=== PATIENT | male | born 1960 | race Caucasian/White ===

== ENCOUNTER 2020-07-23 02:05 | Outpatient (CLI) | payer BC, SELFPAY ==
[2020-07-23 18:46] LABS: SARS-CoV-2 RNA PCR Negative
== END 2020-07-23 02:06 | disposition home or self-care (01) ==
LOC: ANHCOVIDDT 02:05
PROVIDERS: PCP Family Medicine; Visit Provider Internal Medicine Gastroenterology
DX: Z01.818 Encounter for other preprocedural examination (principal); Z20.828 Contact with and (suspected) exposure to other viral communicable diseases
CPT/HCPCS: 87635; C9803; U0003

== ENCOUNTER 2020-07-26 00:53 | Day surgery (SDC) | payer BC, SELFPAY ==
[2020-07-19 12:00] VITALS: BMI 26.3
[2020-07-26 08:14] VITALS: BP 115/78; PULSE 68; RESP 18; TEMP 36.9; O2SAT 100
[2020-07-26] MEDS: LACTATED RINGERS 1,000 ML 150 ML IV CONT (08:17)
--- NOTE | 2020-07-26 08:26 | P.PNAN_ITS ---
Anes - Initial Pre Proc Eval Procedure: Operation Date: 07/26/20 09:30 Proposed Procedures p Screening Colonoscopy - Hugo Momin MD Date/Time: 07/26/20 08:26 Surgeon: Hugo Momin MD Pre Op Diagnosis: neoplasm screening, family hx colon polyps Patient Data Age: 60 Gender: M Height: 6 ft 2 in Weight: 93 kg Last Vital Signs Temp 36.9 C 07/26/20 08:14 Pulse 68 07/26/20 08:14 Resp 18 07/26/20 08:14 BP 115/78 07/26/20 08:14 Pulse Ox 100 07/26/20 08:14 Allergies Allergy/AdvReac Type Severity Reaction Status Date / Time No Known Allergies Allergy Verified 07/26/20 08:14 Home Medications Medication Instructions Recorded Confirmed Type atorvastatin 10 mg tablet 10 mg PO DAILY #90 tablet 05/07/20 07/19/20 Rx aspirin [Oren Aspirin] 325 mg PO DAILY 07/19/20 07/19/20 History Patient hx anesthesia problems: none Family hx anesthesia problems: none [facility] Past Medical History Medical History (Updated 07/26/20 @ 08:26 by Hai Singh MD) Overweight Family History Family History Mother Hypertension Family history of elevated blood lipids Family history of malignant neoplasm of breast in first degree relative Father Family history of elevated blood lipids Grandparent Carcinoma of colon Social History Social History Smoking status: Current every day smoker Alcohol intake: current Drinks per week: 2 Alcohol use details: DRINKS Substance use: never Substance use type: does not use Living arrangements: with family Spiritual care concerns: No Anes - Eval Final PreProcedure Day of Procedure 07/26/20 08:26 Patient weight: overweight Heart: regular rate and rhythm Lungs: clear to auscultation Airway: Mallampati scale class II Neurological: alert and oriented Last oral intake: >/= 8 hours ASA classification: II Emergent: no Anesthetic plan: proceed Anesthesia type and monitoring: general GIVS and standard monitoring Informed Consent: The patient's anesthetic plan and its attendant risks and b enefits were discussed with the patient/family/POA. Questions were solicited and answers provided to the satisfaction of the patient/family/POA.
--- NOTE | 2020-07-26 08:50 | WPDGICN ---
Assessment and Plan Assessment and plan (1) Family history of colonic polyps: Code(s): Z83.71 - Family history of colonic polyps Status: Acute Assessment and Plan: Patient's father had colon polyps. Both grandmother and grandfather on his father said he would have had colon cancer. Suggest the patient have: Os could be screening performed now and consider this at 5 year intervals in the future given his family history. GI Consult Note Consult date/time: 07/26/20 08:50 HPI: Al Nevarez is a 60 year old male Presents for screening colonoscopy. Family history is significant his father had colon polyps grandmother and grandfather on his father's side both had colon cancer. Patient states that his current weight appetite bowel movements are normal. Patient denies abdominal pain. He has had no bleeding. His bowel habits are reported as normal texture. Review of Systems Review of Systems: All systems reviewed & are unremarkable except as noted in HPI and below PMFSH Past Medical History Medical History (Updated 07/26/20 @ 08:51 by Hugo Momin MD) Overweight Family History Family History Mother Hypertension Family history of elevated blood lipids Family history of malignant neoplasm of breast in first degree relative Father Family history of elevated blood lipids Grandparent Carcinoma of colon Social History Social History Smoking status: Current every day smoker Alcohol intake: current Drinks per week: 2 Alcohol use details: DRINKS Substance use: never Substance use type: does not use Living arrangements: with family Spiritual care concerns: No Meds Home Medications and Allergies Home Medications Medication Instructions Recorded Confirmed Type atorvastatin 10 mg tablet 10 mg PO DAILY #90 tablet 05/07/20 07/19/20 Rx aspirin [Oren Aspirin] 325 mg PO DAILY 07/19/20 07/19/20 History Allergies Allergy/AdvReac Type Severity Reaction Status Date / Time No Known Allergies Allergy Verified 07/26/20 08:14 Vital Signs Vital Signs - 24 hr 07/26/20 08:14 Temperature 98.5 F Pulse Rate 68 Respiratory Rate 18 Blood Pressure 115/78 Pulse Oximetry 100 Exam Narrative: Exam Narrative: Physical exam reveals patient to be alert. Vital signs stable. HEENT exam unremarkable. Lungs are clear to auscultation and percussion. Heart is without murmur or extra sounds. Abdominal exam bowel sounds are present soft nontender with no hepatosplenomegaly. Digital external rectal exam is normal.
[2020-07-26 09:45] VITALS: BP 100/62; PULSE 63; RESP 27; O2SAT 100
[2020-07-26 09:55] VITALS: BP 111/77; PULSE 64; RESP 18; O2SAT 100
[2020-07-26 10:05] VITALS: BP 116/75; PULSE 60; RESP 17; O2SAT 99
== END 2020-07-26 10:18 | disposition home or self-care (01) ==
PROVIDERS: PCP Family Medicine; Visit Provider Internal Medicine Gastroenterology
PROC: 0DJD8ZZ Inspection of Lower Intestinal Tract, Via Natural or Artificial Opening Endoscopic (ICD-10-PCS; CPT 45378; principal; 2020-07-26 09:30)
DX: Z12.11 Encounter for screening for malignant neoplasm of colon (principal); Z83.71 Family history of colonic polyps; K57.30 Diverticulosis of large intestine without perforation or abscess without bleeding; K64.8 Other hemorrhoids; Z79.82 Long term (current) use of aspirin
CPT/HCPCS: 45378; J2704; J7120

== ENCOUNTER 2024-05-06 13:40 | Outpatient (CLI) | payer BC, SELFPAY ==
--- NOTE | ~2024-05-06 | XR_ITS ---
XR cervical spine min 6V Ordering provider: Regine Pelayo DO History: . neck pain and stiffness for a few months, no injury . Comparison: None. FINDINGS: VERTEBRAL BODIES: Normal height and alignment. No visible fracture or subluxation. The dens is intact . DISK SPACES: Narrowing of the disc C5-C6. Multilevel facet joint disease. Multilevel uncovertebral samaria int osteoarthritic changes. PARASPINOUS SOFT TISSUES: No prevertebral soft tissue swelling. IMPRESSION: No acute osseous abnormality cervical spine. Reviewed, dictated and finalized at location A.
== END 2024-05-06 13:41 | disposition home or self-care (01) ==
PROVIDERS: PCP Family Medicine; Visit Provider Family Medicine
DX: M54.2 Cervicalgia (principal)
CPT/HCPCS: 72052

== ENCOUNTER 2024-11-13 08:18 | Outpatient (CLI) | payer BC, SELFPAY ==
--- OUTSIDE RECORDS SUMMARY | 2024-11-13 08:26 | XMS_ITS | Referral Summary ---
Author Organization [address] Address [address] [place] [id number] Care Team Providers Care Interlocking And Signal Mechanic Name Role Phone Regine Pelayo DO Primary Care Provider [phone] Encounters Date Type Department Care Team Description 10/23/2024 9:00 AM CDT Procedure visit [facility] Sports Medicine and Primary Care at [address] [phone] Adeel Wolfe DO Localized osteoarthritis of shoulder regions, bilateral (Primary Dx) 10/17/2024 1:30 PM AIRCRAFT ENGINE [employer]LIND[employer] MECHANIC Ancillary Procedure [facility] Imaging at [address] [phone] 10/17/2024 1:05 PM AIRCRAFT ENGINE [employer]LIND[employer] MECHANIC Ancillary Procedure [facility] Imaging at [address] [phone] Left shoulder pain, unspecified chronicity 10/17/2024 1:00 PM AIRCRAFT ENGINE CYLINDER MECHANIC Office Visit [facility] Sports Medicine and Primary Care at [address] [phone] Adeel Wolfe DO Left shoulder pain, unspecified chronicity (Primary Dx); Traumatic closed fracture of distal clavicle with minimal displacement, right, with routine healing, subsequent encounter; Localized osteoarthritis of shoulder regions, bilateral 09/26/2024 12:15 PM AIRCRAFT ENGINE [employer]LINDER MECHANIC Ancillary Procedure [facility] Imaging at [address] [phone] Traumatic closed fracture of distal clavicle with minimal displacement, right, with routine healing, subsequent encounter 09/26/2024 11:45 AM AIRCRAFT ENGINE CYLINDER MECHANIC Office Visit [facility] Sports Medicine and Primary Care at [address] [phone] Adeel Wolfe, Traumatic closed fracture of distal clavicle with minimal displacement, right, with routine healing, subsequent encounter (Primary Dx) 09/05/2024 12:45 PM AIRCRAFT ENGINE CYLINDER MECHANIC Ancillary Procedure [facility] Medical [facility] Imaging at [address] [phone] Traumatic closed fracture of distal clavicle with minimal displacement, right, initial encounter 09/05/2024 1:00 PM AIRCRAFT [employer]INE [employer]IND[employer]CH[employer]IC Office Visit [facility] Sports Medicine and Primary Care at [address] [place] [address] Adeel Wolfe, Traumatic closed fracture of distal clavicle with minimal displacement, right, with routine healing, subsequent encounter (Primary Dx) 08/21/2024 11:10 AM AIRCRAFT ENGINE CYLINDER MECHANIC Ancillary Procedure [facility] Imaging at [address] [phone] Acute pain of right shoulder 08/21/2024 11:30 AM AIRCRAFT ENGINE CYLINDER MECHANIC Office Visit [facility] Sports Medicine and Primary Care at [address] [place] [address] Adeel Wolfe, Acute pain of right shoulder (Primary Dx); Traumatic closed fracture of distal clavicle with minimal displacement, right, initial encounter; Concussion with loss of consciousness of 30 minutes or less, initial encounter from Last 3 Months Allergies No known active allergies Medications atorvastatin (LIPITOR) 10 mg tablet Take 1 tablet (10 mg total) by mouth daily 07/31/[address] (EC NAPROSYN) 500 mg EC tablet Take 1 tablet (500 mg total) by mouth 2 (two) times a day with meals Active Active Problems Problem Noted Date Diagnosed Date Localized osteoarthritis of shoulder regions, bi lateral 10/23/2024 Social History Tobacco Use Types Packs/Day Years Used Date Smoking Tobacco: Never Smokeless Tobacco: Never Tobacco Cessation:Counseling Given: Not Answered AUDIT-C Answer Date Recorded Q1: How often do you have a drink containing alcohol? Never 09/05/2024 Q2: How many drinks containi ng alcohol do you have on a typical day when you are drinking? Patient does not drink Q3: How often do you have si x or more drinks on one occasion? Never 09/05/2024 Sex and Gender Information Value Date Recorded Sex Assigned at Not on file Legal Sex Male 2:22 PM [employer]CRA[employer]IND[employer] MECHANIC Gender Identity Not on file Sexual Orientation Not on file Last Filed Vital Signs Vital Sign Reading Time Taken Comments Blood Pressure 147/97 10/23/2024 8:46 AM CDT Pulse 57 10/23/2024 8:46 AM CDT Temperature - - Respiratory Rate 16 10/17/2024 1:12 PM AIRCRAFT [employer]INE [employer]LINDER MECHANIC Oxygen Saturation - - Inhaled Oxygen Concentration - - Weight 101.7 kg (224 lb 3.2 oz) 10/23/2024 8:46 AM CDT Height 186.7 cm (6' 1.5 ) 10/23/2024 8:46 AM CDT Body Mass Index 29.18 10/23/2024 8:46 AM CDT Plan of Treatment Not on file Procedures Procedure Name Priority Date/Time Associated Diagnosis Comments MT ARTHROCENTESIS ASPIR&/INJ MAJOR JT/BURSA W/US Routine 10/23/2024 9:00 AM CDT Localized osteoarthritis of shoulder regions, bilateral XR CLAVICLE RIGHT COMPLETE Schedule Routine, Read Routine (OP Routine) 10/17/2024 1:29 PM AIRCRAFT ENGINE CYLINDER MECHANIC Traumatic closed fracture of distal clavicle with minimal displacement, right, with routine healing, subsequent encounter XR SHOULDER LEFT 2 OR MORE VIEWS Routine 10/17/2024 1:07 PM AIRCRAFT [employer]INE [employer] MECHANIC Left shoulder pain, unspecified chronicity XR CLAVICLE RIGHT COMPLETE Routine 09/26/2024 12:19 PM AIRCRAFT ENGINE CYLINDER MECHANIC Traumatic closed fracture of distal clavicle with minimal displacement, right, with routine healing, subsequent encounter XR SHOULDER RIGHT 2 OR MORE VIEWS Routine 09/05/2024 12:46 PM AIRCRAFT ENGINE CYLINDER MECHANIC Traumatic closed fracture of distal clavicle with minimal displacement, right, initial encounter XR SHOULDER RIGHT 2 OR MORE VIEWS Schedule Routine, Read Routine (OP Routine) 08/21/2024 11:25 AM AIRCRAFT ENGINE CYLINDER MECHANIC Acute pain of right shoulder from Last 3 Months Results * MT ARTHROCENTESIS ASPIR&/INJ MAJOR JT/BURSA W/US (10/23/2024 9:00 AM CDT) Narrative Adeel Wolfe DO - 10/23/2024 9:00 AM CDT Adeel Wolfe DO 10/23/2024 9:54 AM Large Joint Injection w/ Ultrasound Guidance: R glenohumeral Performed by: Adeel Wolfe DO Authorized by: Adeel Wolfe DO Large Joint Injection/Aspiration: Consent Given by: Patient Site marked: the procedure site was marked Timeout: prior to procedure the correct patient, procedure, and site was verified Verbal consent obtained: Yes Supporting Documentation: Indications: Pain (therapeutic) Procedure Details: Location: Shoulder Site: R glenohumeral Prep: patient was prepped and draped in usual sterile fashion Prep: patient was prepped using a clean technique Needle Size: 18 G Approach: Posterior Ultrasound guided: Yes Fluroscopic guidance: No Ultrasound guidance used for: Real-time guidance Sterile ultrasond techniques: Sterile gel and sterile probe covers were used Ultrasound note: US guided Glenohumeral injection right Patient name: Al Israel Roque Performing physician: HUEY Proctor DO, CAQSM Reason for procedure: Right GH osteoarthritis Patient was brought into a room where a sterile whole blood draw of 60ml was done. This was placed into the [employer] double spin centrifuge and the whole blood was spun for a total of 17 minutes through their double spin system first at a speed of 200x for 10 minutes followed by transfer of the upper layer of the upper plasma layer avoiding the buffy coat, then spun again at 1600x for another 7 minutes. A PRP substrate of 3ml of RBC poor substrate was withdrawn. This was capped and stored with anticoagulant in a syringe and brought to the table for injection. Patient in the left lateral recumbent position. The right shoulder was facing up and sterilized using Hibiclens. The curvilinear transducer was placed on the posterior aspect of the shoulder in short axis to the joint. The posterior joint space was normal in appearance. The posterior labrum was normal in appearance. The posterior joint capsule was normal in appearance. Once the posterior shoulder capsule was identified, Doppler ultrasound was placed over the area of injection to confirm no vasculature within the pathway of the needle. Once this was confirmed, a 3.5 in, 18 gauge needle was inserted on the lateral aspect of the shoulder implant to the transducer. The needle tip was identified in the subcutaneous tissue, and advanced, in real time, to the posterior shoulder capsule. Once noted within the shoulder capsule, a substrate of 3ml of PRP was injected into the glenohumeral joint. Flow of fluid within the joint capsule was noted for confirmation of placement. Impression: Successful injection of the right glenohumeral joint under ultrasound guidance us Adeel Wolfe DO IN CLINIC/BEDSIDE [facility] CARDONA Final Result * XR Clavicle Right Complete (10/17/2024 1:29 PM AIRCRAFT ENGINE CYLINDER MECHANIC) Anatomical Region Laterality Modality Clavicle, Chest Right Digital Radiogra phy 10/22/2024 12:2 9 PM CDT Narrative 10/22/2024 12:30 PM CDT EXAM DESCRIPTION: XR SHOULDER LEFT 2 OR MORE VIEWS; XR CLAVICLE RIGHT COMPLETE REASON FOR STUDY: pain Pt complains of chronic left shoulder pain. No known injury or prior surgery ; pain Fx f/u x 2 months FINDINGS: Four views left shoulder and two views right clavicle submitted with comparison 09/26/2024. Left shoulder: No acute fracture. Alignment is normal. Moderate glenohumeral and severe acromioclavicular joint osteoarthritis. Left-sided cervical facet osteoarthritis and inferior foraminal impingement is noted. Right clavicle: There is a healing, displaced distal right clavicle fracture. Moderate acromioclavicular joint osteoarthritis. Alignment unchanged. IMPRESSION: Healing, displaced distal right clavicle fracture. Moderate left glenohumeral and severe acromioclavicular joint osteoarthritis. Left-sided cervical facet osteoarthritis with inferior foraminal impingement. THIS IS AN ELECTRONICALLY VERIFIED FINAL REPORT 10/22/2024 12:30 PM - Electronically signed by Adeel Peña M.D. T: Report ID: [id number] Reading Location: [id number] Procedure Note Adeel Peña MD - 10/22/2024 EXAM DESCRIPTION: XR SHOULDER LEFT 2 OR MORE VIEWS; XR CLAVICLE RIGHT COMPLETE REASON FOR STUDY: pain Pt complains of chronic left shoulder pain. No known injury or priorsurgery ; pain Fx f/u x 2 months FINDINGS: Four views left shoulder and two views right clavicle submittedwith comparison 09/26/2024. Left shoulder: No acute fracture. Alignment is normal. Moderate glenohumeral and severe acromioclavicular joint osteoarthritis. Left-sided cervical facet osteoarthritis and inferior foraminal impingement is noted. Right clavicle: There is a healing, displaced distal right clavicle fracture. Moderate acromioclavicular joint osteoarthritis. Alignment unchanged. IMPRESSION: Healing, displaced distal right clavicle fracture. Moderate left glenohumeral and severe acromioclavicular jointosteoarthritis. Left-sided cervical facet osteoarthritis with inferior foraminalimpingement. THIS IS AN ELECTRONICALLY VERIFIED FINAL REPORT 10/22/2024 12:30 PM - Electronically signed by Adeel Peña M.D. T: Report ID: [id number] Reading Location: [id number] Adeel Wolfe DO IMG XR PROCEDURES Мария l Result * XR Shoulder Left 2 or More Views (10/17/2024 1:07 PM AIRCRAFT ENGINE CYLINDER MECHANIC) Anatomical Region Laterality Modality Upper Extremities, Shoulder Left Digi shaan Radiography 10/22/2024 12:2 9 PM CDT Narrative 10/22/2024 12:30 PM CDT EXAM DESCRIPTION: XR SHOULDER LEFT 2 OR MORE VIEWS; XR CLAVICLE RIGHT COMPLETE REASON FOR STUDY: pain Pt complains of chronic left shoulder pain. No known injury or prior surgery ; pain Fx f/u x 2 months FINDINGS: Four views left shoulder and two views right clavicle submitted with comparison 09/26/2024. Left shoulder: No acute fracture. Alignment is normal. Moderate glenohumeral and severe acromioclavicular joint osteoarthritis. Left-sided cervical facet osteoarthritis and inferior foraminal impingement is noted. Right clavicle: There is a healing, displaced distal right clavicle fracture. Moderate acromioclavicular joint osteoarthritis. Alignment unchanged. IMPRESSION: Healing, displaced distal right clavicle fracture. Moderate left glenohumeral and severe acromioclavicular joint osteoarthritis. Left-sided cervical facet osteoarthritis with inferior foraminal impingement. THIS IS AN ELECTRONICALLY VERIFIED FINAL REPORT 10/22/2024 12:30 PM - Electronically signed by Adeel Peña M.D. T: Report ID: [id number] Reading Location: [place] [id number] Procedure Note Adeel Peña MD - 10/22/2024 EXAM DESCRIPTION: XR SHOULDER LEFT 2 OR MORE VIEWS; XR CLAVICLE RIGHT COMPLETE REASON FOR STUDY: pain Pt complains of chronic left shoulder pain. No known injury or priorsurgery ; pain Fx f/u x 2 months FINDINGS: Four views left shoulder and two views right clavicle submittedwith comparison 09/26/2024. Left shoulder: No acute fracture. Alignment is normal. Moderate glenohumeral and severe acromioclavicular joint osteoarthritis. Left-sided cervical facet osteoarthritis and inferior foraminal impingement is noted. Right clavicle: There is a healing, displaced distal right clavicle fracture. Moderate acromioclavicular joint osteoarthritis. Alignment unchanged. IMPRESSION: Healing, displaced distal right clavicle fracture. Moderate left glenohumeral and severe acromioclavicular jointosteoarthritis. Left-sided cervical facet osteoarthritis with inferior foraminalimpingement. THIS IS AN ELECTRONICALLY VERIFIED FINAL REPORT 10/22/2024 12:30 PM - Electronically signed by Adeel Peña M.D. T: Report ID: [id number] Reading Location: [place] [id number] Adeel Wolfe DO IMG XR PROCEDURES Мария l Result * XR Clavicle Right Complete (09/26/2024 12:19 PM AIRCRAFT ENGINE CYLINDER MECHANIC) Anatomical Region Laterality Modality Clavicle, Chest Right Digital Radiogra phy 10/01/2024 9:04 AM AIRCRAFT ENGINE CYLINDER MECHANIC Narrative 10/01/2024 9:07 AM AIRCRAFT ENGINE CYLINDER MECHANIC EXAM DESCRIPTION: XR CLAVICLE RIGHT COMPLETE REASON FOR STUDY: Right clavicular pain. Follow up distal clavicle fracture. TECHNIQUE: 2 radiographic view(s) of the right clavicle . COMPARISON: September 05, 2024 FINDINGS: BONES/JOINTS: Healing fracture of lateral head of right clavicle has not changed significantly in alignment. There has probably been slight progression of bony callus. New fractures are identified. Moderate osteoarthritic changes at the AC joint. SOFT TISSUES: Within normal limits. IMPRESSION: Healing fracture of lateral head of right clavicle has not changed significantly in alignment. There has probably been slight progression of bony callus. THIS IS AN ELECTRONICALLY VERIFIED FINAL REPORT 10/01/2024 9:07 AM - Electronically signed by Gregory Temple M.D. RB T: Report ID: [id number] Reading Location: [id number] Procedure Note Gregory Temple MD - 10/01/2024 EXAM DESCRIPTION: XR CLAVICLE RIGHT COMPLETE REASON FOR STUDY: Right clavicular pain. Follow up distal clavicle fracture. TECHNIQUE: 2 radiographic view(s) of the right clavicle . COMPARISON: September 05, 2024 FINDINGS: BONES/JOINTS: Healing fracture of lateral head of right claviclehas not changed significantly in alignment. There has probably been slight progression of bony callus. New fractures are identified. Moderate osteoarthritic changes at the AC joint. SOFT TISSUES: Within normal limits. IMPRESSION: Healing fracture of lateral head of right clavicle has notchanged significantly in alignment. There has probably been slight progression ofbony callus. THIS IS AN ELECTRONICALLY VERIFIED FINAL REPORT 10/01/2024 9:07 AM - Electronically signed by Gregory Temple M.D. RB T: Report ID: [id number] Reading Location: [id number] Adeel Wolfe DO IMG XR PROCEDURES Мария l Result * XR Shoulder Right 2 or More Views (09/05/2024 12:46 PM AIRCRAFT ENGINE CYLINDER MECHANIC) Anatomical Region Laterality Modality Upper Extremities, Shoulder Right Digi shaan Radiography 09/05/2024 2:30 PM AIRCRAFT ENGINE CYLINDER MECHANIC Narrative 09/05/2024 2:31 PM AIRCRAFT ENGINE CYLINDER MECHANIC EXAM DESCRIPTION: XR SHOULDER RIGHT 2 OR MORE VIEWS REASON FOR STUDY: pain Fx f/u x 5 weeks TECHNIQUE: Three views right shoulder. COMPARISON: 08/21/2024. FINDINGS: Interval healing of the distal right clavicular fracture. The acromioclavicular joint maintains alignment. The fracture of the distal clavicle remains evident although there is some callus formation and slight resorption of the fracture margins. Humeral head projects normally over the glenoid. IMPRESSION: Slight interval healing of the distal right clavicular fracture. THIS IS AN ELECTRONICALLY VERIFIED FINAL REPORT 09/05/2024 2:31 PM - Electronically signed by Hola Sanders M.D. T: Report ID: [id number] Reading Location: [id number] Procedure Note Hola Sanders Jr., MD - 09/05/2024 EXAM DESCRIPTION: XR SHOULDER RIGHT 2 OR MORE VIEWS REASON FOR STUDY: pain Fx f/u x 5 weeks TECHNIQUE: Three views right shoulder. COMPARISON: 08/21/2024. FINDINGS: Interval healing of the distal right clavicular fracture. The acromioclavicular joint maintains alignment. The fracture of the distal clavicle remains evident although there is some callus formation andslight resorption of the fracture margins. Humeral head projects normally overthe glenoid. IMPRESSION: Slight interval healing of the distal right clavicularfracture. THIS IS AN ELECTRONICALLY VERIFIED FINAL REPORT 09/05/2024 2:31 PM - Electronically signed by Hola Sanders M.D. T: Report ID: [id number] Reading Location: [id number] us Adeel Wolfe DO IMG XR PROCEDURES Мария l Result * XR Shoulder Right 2 or More Views (08/21/2024 11:25 AM AIRCRAFT ENGINE CYLINDER MECHANIC) Anatomical Region Laterality Modality Upper Extremities, Shoulder Right Digi shaan Radiography 08/22/2024 10:3 1 AM AIRCRAFT ENGINE CYLINDER MECHANIC Narrative 08/22/2024 10:34 AM AIRCRAFT ENGINE [employer]LINDER MECHANIC EXAM DESCRIPTION: XR SHOULDER RIGHT 2 OR MORE VIEWS REASON FOR STUDY: Pt complains of right shoulder pain after falling while skiing x 10 days ago. No prior fx or surgery TECHNIQUE: Four radiographic view(s) of the right shoulder . COMPARISON: None FINDINGS: BONES/JOINTS: There is a mildly comminuted and displaced fracture involving the distal right clavicle. The distal fracture fragment does appear to maintain a relationship with the acromion process. No other evidence of acute fracture. Joint space narrowing of both the acromioclavicular and glenohumeral joints. Degenerative changes at the greater tuberosity. SOFT TISSUES: There is no focal soft tissue abnormality IMPRESSION: 1. Mildly displaced fracture involving the distal right clavicle. The distal fracture fragment does appear to maintain anatomic relationship with the acromion process. No other acute fracture. 2. Osteoarthritis. THIS IS AN ELECTRONICALLY VERIFIED FINAL REPORT 08/22/2024 10:34 AM - Electronically signed by Diane Sutton M.D. TW T: Report ID: [id number] Reading Location: [id number] Procedure Note Diane Sutton MD - 08/22/2024 EXAM DESCRIPTION: XR SHOULDER RIGHT 2 OR MORE VIEWS REASON FOR STUDY: Pt complains of right shoulder pain after falling while skiing x 10 days ago. No prior fx or surgery TECHNIQUE: Four radiographic view(s) of the right shoulder . COMPARISON: None FINDINGS: BONES/JOINTS: There is a mildly comminuted and displacedfracture involving the distal right clavicle. The distal fracture fragment doesappear to maintain a relationship with the acromion process. No other evidenceof acute fracture. Joint space narrowing of both the acromioclavicular and glenohumeral joints. Degenerative changes at the greater tuberosity. SOFT TISSUES: There is no focal soft tissue abnormality IMPRESSION: 1. Mildly displaced fracture involving the distal right clavicle. The distal fracture fragment does appear to maintain anatomic relationshipwith the acromion process. No other acute fracture. 2. Osteoarthritis. THIS IS AN ELECTRONICALLY VERIFIED FINAL REPORT 08/22/2024 10:34 AM - Electronically signed by Diane Sutton M.D. TW T: Report ID: [id number] Reading Location: [id number] Adeel Wolfe DO IMG XR PROCEDURES Мария l Result from Last 3 Months Insurance [facility] Care Teams Interlocking And Signal Mechanic Relationship Specialty Start Date End Date Regine Pelayo DO [facility] [address] [place] [address] PCP - General Family Medicine 08/14/24
--- OUTSIDE RECORDS SUMMARY | 2024-11-13 08:26 | XMS_ITS | Clinical Summary ---
Author Organization [address] Address [address] [place] [id number] Care Team Providers Care Clearing Inspector Name Role Phone Regine Pelayo DO Primary Care Provider [phone] Allergies No known active allergies Medications atorvastatin (LIPITOR) 10 mg tablet Take 1 tablet (10 mg total) by mouth daily 07/31/[address] (EC NAPROSYN) 500 mg EC tablet Take 1 tablet (500 mg total) by mouth 2 (two) times a day with meals Active Active Problems Problem Noted Date Diagnosed Date Localized osteoarthritis of shoulder regions, bi lateral 10/23/2024 Encounters Date Type Department Care Team Description 10/23/2024 9:00 AM CDT Procedure visit [facility] Sports Medicine and Primary Care at [address] [phone] Adeel Wolfe DO Localized osteoarthritis of shoulder regions, bilateral (Primary Dx) 10/17/2024 1:30 PM OIL DISTRIBUTOR Ancillary Procedure [facility] Imaging at [address] [phone] 10/17/2024 1:05 PM OIL DISTRIBUTOR Ancillary Procedure [facility] Imaging at [address] [phone] Left shoulder pain, unspecified chronicity 10/17/2024 1:00 PM OIL DISTRIBUTOR Office Visit [facility] Sports Medicine and Primary Care at [address] [phone] Adeel Wolfe DO Left shoulder pain, unspecified chronicity (Primary Dx); Traumatic closed fracture of distal clavicle with minimal displacement, right, with routine healing, subsequent encounter; Localized osteoarthritis of shoulder regions, bilateral 09/26/2024 12:15 PM OIL DISTRIBUTOR Ancillary Procedure [facility] Imaging at [address] [phone] Traumatic closed fracture of distal clavicle with minimal displacement, right, with routine healing, subsequent encounter 09/26/2024 11:45 AM OIL DISTRIBUTOR Office Visit [facility] Sports Medicine and Primary Care at [address] [phone] Adeel Wolfe, Traumatic closed fracture of distal clavicle with minimal displacement, right, with routine healing, subsequent encounter (Primary Dx) 09/05/2024 1:00 PM OIL DISTRIBUTOR Office Visit [facility] Sports Medicine and Primary Care at [address] [phone] Adeel Wolfe, Traumatic closed fracture of distal clavicle with minimal displacement, right, with routine healing, subsequent encounter (Primary Dx) 09/05/2024 12:45 PM OIL DISTRIBUTOR Ancillary Procedure [facility] Imaging at [address] [phone] Traumatic closed fracture of distal clavicle with minimal displacement, right, initial encounter 08/21/2024 11:30 AM OIL DISTRIBUTOR Office Visit [facility] Sports Medicine and Primary Care at [address] [phone] Adeel Wolfe, Acute pain of right shoulder (Primary Dx); Traumatic closed fracture of distal clavicle with minimal displacement, right, initial encounter; Concussion with loss of consciousness of 30 minutes or less, initial encounter 08/21/2024 11:10 AM OIL DISTRIBUTOR Ancillary Procedure [facility] Imaging at [address] [phone] Acute pain of right shoulder from Last 3 Months Surgical History Surgery Date Site/Laterality Comments NO PAST SURGERIES Medical History Medical History Date Comments Hypercholesterolemia Family History Medical History Relation Name Comments No Known Problems Brother 1 No Known Problems Brother 2 No Known Problems Father No Known Problems Mother No Known Problems Sister Relation Name Status Comments Brother 1 Alive Brother 2 Alive Father Mother Alive Sister Alive Social History Tobacco Use Types Packs/Day Years [...] on file Legal Sex Male 2:22 PM OIL DISTRIBUTOR Gender Identity Not on file Sexual Orientation Not on file Obstetrics History Last Filed Vital Signs Vital Sign Reading Time Taken Comments Blood Pressure 147/97 10/23/2024 8:46 AM CDT Pulse 57 10/23/2024 8:46 AM CDT Temperature - - Respiratory Rate 16 10/17/2024 1:12 PM OIL DISTRIBUTOR Oxygen Saturation - - Inhaled Oxygen Concentration - - Weight 101.7 kg (224 lb 3.2 oz) 10/23/2024 8:46 AM CDT Height 186.7 cm (6' 1.5 ) 10/23/2024 8:46 AM CDT Body Mass Index 29.18 10/23/2024 8:46 AM CDT Plan of Treatment Health Maintenance Due Date Last Done Comments Colon Cancer Screening-Colonoscopy 1961 Depression Screening 1961 Hepatitis C Screening 1961 Prostate Cancer Screening-PSA 1961 Hepatitis B Screening 1979 Regular Well Visit/Exam 18-64 1979 Covid-19 Vaccine ( season) 2024 01/13/2022, 06/24/2021, 10/28/2020, Additional history exists Influenza Vaccine (#1) 2024 9, 07/01/2018, 05/04/2013 DTaP/Tdap/Td Vaccine (2 - Td or Tdap) 08/16/2031 08/16/2021 Zoster Vaccine Completed 02/17/2019, 12/12/2018 Pneumococcal vaccine <65 Aged Out No longer eligible based on patient's age to complete this topic Procedures Procedure Name Priority Date/Time Associated Diagnosis Comments [place] ARTHROCENTESIS ASPIR&/INJ MAJOR JT/BURSA W/US Routine 10/23/2024 9:00 AM CDT Localized osteoarthritis of shoulder regions, bilateral XR CLAVICLE RIGHT COMPLETE Schedule Routine, Read Routine (OP Routine) 10/17/2024 1:29 PM OIL DISTRIBUTOR Traumatic closed fracture of distal clavicle with minimal displacement, right, with routine healing, subsequent encounter XR SHOULDER LEFT 2 OR MORE VIEWS Routine 10/17/2024 1:07 PM OIL DISTRIBUTOR Left shoulder pain, unspecified chronicity XR CLAVICLE RIGHT COMPLETE Routine 09/26/2024 12:19 PM OIL DISTRIBUTOR Traumatic closed fracture of distal clavicle with minimal displacement, right, with routine healing, subsequent encounter XR SHOULDER RIGHT 2 OR MORE VIEWS Routine 09/05/2024 12:46 PM OIL DISTRIBUTOR Traumatic closed fracture of distal clavicle with minimal displacement, right, initial encounter XR SHOULDER RIGHT 2 OR MORE VIEWS Schedule Routine, Read Routine (OP Routine) 08/21/2024 11:25 AM OIL DISTRIBUTOR Acute pain of right shoulder from Last 3 Months Results * AZ ARTHROCENTESIS ASPIR&/INJ MAJOR JT/BURSA W/US (10/23/2024 9:00 [...] guided Glenohumeral injection right Patient name: Al Nevarez Performing physician: Adeel Wolfe DO, HUEY, KEON Reason for procedure: Right GH osteoarthritis Patient was brought into a room where a sterile whole blood draw of 60ml was done. This was placed into the Mango-Mate double spin centrifuge and the whole blood [...] XR Clavicle Right Complete (10/17/2024 1:29 PM OIL DISTRIBUTOR) Anatomical Region Laterality Modality Clavicle, Chest Right [...] by Adeel Peña M.D. T: Report ID: [id number] Reading Location: [id number] Procedure Note Adeel Peña MD - 10/22/2024 [...] by Adeel Peña M.D. T: Report ID: [id number] Reading Location: [id number] Adeel Bermeo Aiden DO IMG XR PROCEDURES Мария l Result * XR Shoulder Left 2 or More Views (10/17/2024 1:07 PM OIL DISTRIBUTOR) Anatomical Region Laterality Modality Upper Extremities, Shoulder [...] by Adeel Peña M.D. T: Report ID: [id number] Reading Location: [id number] Procedure Note Adeel Peña MD - 10/22/2024 [...] by Adeel Peña M.D. T: Report ID: [id number] Reading Location: [id number] Adeel Wolfe DO IMG XR PROCEDURES Мария l Result * XR Clavicle Right Complete (09/26/2024 12:19 PM OIL DISTRIBUTOR) Anatomical Region Laterality Modality Clavicle, Chest Right Digital Radiogra phy 10/01/2024 9:04 AM OIL DISTRIBUTOR Narrative 10/01/2024 9:07 AM OIL DISTRIBUTOR EXAM DESCRIPTION: XR CLAVICLE RIGHT COMPLETE REASON [...] 9:07 AM - Electronically signed by Gregory HENNING T: Report ID: [id number] Reading Location: [id number] Procedure Note Gregory Temple MD - 10/01/2024 [...] Gregory Temple M.D. RB T: Report ID: [id number] Reading Location: [id number] Adeel Wolfe DO IMG XR PROCEDURES Мария l Result * XR Shoulder Right 2 or More Views (09/05/2024 12:46 PM OIL DISTRIBUTOR) Anatomical Region Laterality Modality Upper Extremities, Shoulder Right Digi shaan Radiography 09/05/2024 2:30 PM OIL DISTRIBUTOR Narrative 09/05/2024 2:31 PM OIL DISTRIBUTOR EXAM DESCRIPTION: XR SHOULDER RIGHT 2 OR [...] by Hola Sanders M.D. T: Report ID: [id number] Reading Location: [id number] Procedure Note Hola Sanders Jr., MD - [...] by Hola Sanders M.D. T: Report ID: [id number] Reading Location: [id number] Adeel Jean-Claude Wolfe DO IMG XR PROCEDURES Мария l Result * XR Shoulder Right 2 or More Views (08/21/2024 11:25 AM OIL DISTRIBUTOR) Anatomical Region Laterality Modality Upper Extremities, Shoulder Right Digi shaan Radiography 08/22/2024 10:3 1 AM OIL DISTRIBUTOR Narrative 08/22/2024 10:34 AM OIL DISTRIBUTOR EXAM DESCRIPTION: XR SHOULDER RIGHT 2 OR [...] - Electronically signed by Diane Sutton M.D. T: Report ID: [id number] Reading Location: [id number] Procedure Note Diane Sutton MD - 08/22/2024 [...] - Electronically signed by Diane Sutton M.D. T: Report ID: [id number] Reading Location: [id number] Adeel Wolfe DO IMG XR PROCEDURES Мария l Result from Last 3 Months Insurance [facility] Care Teams Clearing Inspector Relationship Specialty Start Date End Date Regine Pelayo DO [facility] [address] [facility] [address] [place] [id number] PCP - General Family Medicine 08/14/24
[2024-12-08 11:55] VITALS: BMI 27.8
--- NOTE | 2024-12-08 11:55 | P.SLEEP_ITS ---
Sleep Study - Home Unattended Date of Study: 11/13/24 Ordering Provider: ROXANN LangeC Interpreting Provider: Flores Ryan, DO Home Sleep Study Type: Watch PAT Height: 1.88 m Weight: 98.43 kg Body Mass Index: 27.8 Neck Circumference (inches): 16.5 [place]: 2 Reason for Sleep Study snoring, difficulty maintaining sleep Sleep History The patient is a 64-year-old male that had a sleep study ordered by his primary care for evaluation of sleep apnea. The patient admits to snoring loudly, trouble maintaining sleep and interruptions in breathing while asleep. He denies choking or gasping at night. He denies having trouble breathing on his back. He denies morning headaches. He does have a dry or sore mouth / throat in the morning. He denies nocturnal heartburn. He urinates twice throughout the night. He denies having trouble falling asleep. He denies having difficulty returning to sleep if he wakes up throughout the night. He does not use any hypnotics or sedatives. He denies feeling anxious about sleep. He does feel tired or sleepy during the day. He does feel tired in the morning. He denies having the urge to fall asleep during the day. He denies feeling drowsy while driving. He denies sleep paralysis, cataplexy and hypnagogic/ hypnopompic hallucinations. He denies clenching or grinding his teeth. He denies kicking or jerking his legs excessively. He denies having a restless feeling in his legs. He goes to bed at 9:30 p.m. on work days and at 10:00 p.m. on his days off. It takes him 30 minutes to fall asleep. He gets 7 hours of sleep per night. His sleep is a little more restorative on his days off. He denies taking any planned naps. He denies dream enactment behavior. He denies sleep walking. He denies consuming any caffeinated beverages throughout the day. He has 2 glasses of an alcoholic beverage 1-2 nights per week. He smokes less than 5 cigarettes per day. He exercises 3-4 nights per week. PMFSH Past Medical History Medical History Overweight Family History Family History Mother Hypertension Family history of elevated blood lipids Family history of malignant neoplasm of breast in first degree relative Father Family history of elevated blood lipids Grandparent Carcinoma of colon Social History Social History Smoking status: Current some day smoker Tobacco type: cigarettes (occasionally) Alcohol intake: current Drinks per week: 2 Alcohol use details: DRINKS Substance use: never Substance use type: does not use Lack of Transportation: No Lack of Food: Never True Current Housing: I Have Housing Concerned About Future Housing: No Difficulty Paying Gas/Electric Bills: No Difficulty Paying for Meds: No Currently Unemployed: No Education: Bachelor's Degree Difficulty w/ Childcare or Family Care: No Living arrangements: with family Spiritual care concerns: No Medications Home Medications ?Medication ?Instructions ?Recorded ?Confirmed ?Type cyclobenzaprine 10 mg tablet 10 mg PO TID PRN muscle spasm #30 05/06/24 10/27/24 Rx tabs naproxen 500 mg tablet 500 mg PO BID PRN pain #60 tabs 05/06/24 10/27/24 Rx atorvastatin 10 mg tablet 10 mg PO .3 X's weekly 10/27/24 10/27/24 History sildenafil 50 mg tablet (Viagra) 50 mg PO DAILY PRN sexual activity 10/27/24 10/27/24 Rx #10 tabs Sleep Procedure The sleep study was completed using 360TT a technically adequate device with seven channels: peripheral arterial tone, actigraphy, body position, snore, respiratory movement, pulse oximetry, sleep staging, and heart rate. Prior to using the device, the patient received verbal and written instructions for its application and was provided with the help desk phone number for additional telephonic instruction with 24-hour availability of qualified personnel to answer questions. The study was scored using CMS guidelines. Sleep Architecture The total recording time is 8 hrs, 8 min. The total sleep time is 6 hrs, 47 min. Sleep latency is 19 minutes. REM latency is 231 minutes. The patient had 15 episodes of waking. Sleep architecture shows 11.5% deep sleep, 76.6% light sleep, and (as % Total Sleep Time) showed NREM (Light 76.6%; Deep 11.5%), and a 11.9% stage REM. The patient spent 11.3% of total sleep time in the supine position. Sleep efficiency was 83.40. Respiratory Analysis The overall AHI (pAHI 4%:) is 12.2. The overall AHI (pAHI 3%:) is 22.5. The central AHI is 0.3. The AHI was 22.9 in NREM and 19.1 in REM sleep. The AHI was 26.8 in Supine and 21.9 in Non-supine sleep. Percent of Jack Shoemaker respirations is 0.0. Oximetry Data The oxygen desaturation index (ALISON 4%:) is 12.1. The mean saturation is 95%, and the lowest saturation is 87%. Time spent with saturation < 88% is 0.3 minutes. Snoring Profile Snoring average intensity is 52 dB. The patient snored above 45 decibels for 285.0 minutes, 69.9% of sleep time. Cardiac Profile The average pulse rate is 58 beats per minutes. The lowest pulse rate is 41 bpm. The highest pulse rate reported is 81 bpm. Atrial fibrillation was not detected. Premature beats occur <0.1 per minute. Assessment and Plan Assessment and Plan (1) YOKASTA (obstructive sleep apnea): Code(s): G47.33 - Obstructive sleep apnea (adult) (pediatric) Status: Acute Assessment and Plan: The patient had an overall AHI of 12.2 with desaturation down to 87%. This is consistent with mild sleep apnea. Due to the patient's insomnia, he qualifies for treatment. I recommend that the patient be prescribed AutoPAP 5-15 cm H2O, CPAP mask/filters/tubing and heated humidity. A mandibular advancement device is also an acceptable treatment option. This should be used with all episodes of sleep.? Compliance should be reviewed within 31-90 days of starting therapy for usage greater than 4 hours per night greater than 70% of the nights. The patient should be asked about symptoms such as?excessive daytime sleepiness, quality of sleep, decreased nocturia, increased?mental functioning such as memory, mood, and concentration. Data The data obtained during this sleep study is adequate for interpretation. Certification This sleep study has been reviewed by a board certified sleep medicine physician.
== END 2024-11-17 08:53 | disposition home or self-care (01) ==
PROVIDERS: PCP Family Medicine; Visit Provider Nurse Practitioner
DX: G47.8 Other sleep disorders (principal); G47.33 Obstructive sleep apnea (adult) (pediatric)
CPT/HCPCS: 95800

== ENCOUNTER 2024-12-18 10:48 | Outpatient (CLI) | payer BC, SELFPAY ==
--- NOTE | ~2024-12-18 | XR_ITS ---
Left Knee Technique: AP, lateral, and sunrise views were obtained. Clinical History: Pain Findings: No fracture or dislocation is seen. Osseous alignment is anatomic. Joint spaces are preserv ed with minimal spurring. Soft tissues are unremarkable. No joint effusion is seen. Impression: Minimal patellar spurring. Reviewed, dictated and finalized at location . Impression: Minimal patellar spurring.
== END 2024-12-18 10:49 | disposition home or self-care (01) ==
LOC: GOSHIMG 10:49
PROVIDERS: PCP Nurse Practitioner; Visit Provider Nurse Practitioner
DX: M25.562 Pain in left knee (principal)
CPT/HCPCS: 73562

== ENCOUNTER 2025-04-23 12:51 | Outpatient (CLI) | payer BC, SELFPAY ==
--- NOTE | ~2025-04-23 | MR_ITS ---
EXAMINATION: MR knee LT wo con DATE: 04/23/2025 13:31 INDICATION: Medial left knee pain. TECHNIQUE: Magnetic resonance imaging (MRI) of the left knee was performed without intravenous contrast. Sequences included axial PD-weighted FS FSE, coronal PD-weighted FSE and PD-weighted FS FSE, sagittal PD-weighted FSE, and sagittal T2-weighted FS FSE. COMPARISON: Left knee radiographs 12/18/2024 FINDINGS: Medial compartment: There is a complex tear involving body and posterior horn of medial meniscus. There is shallow partial-thickness cartilage loss of tibial condyle. There is partial-thickness cartilage loss of femoral condyle, deep at the lateral articular surface. There are tiny osteophytes. Lateral compartment: Lateral meniscus is normal. There is shallow partial-thickness cartilage loss of tibial condyle posteromedially. There is cartilage surface irregularity of femoral condyle. Patellofemoral compartment: There is shallow partial-thickness cartilage loss of patella. There is deep cartilage fissuring of patellar lateral facet. There is shallow partial- thickness cartilage loss of trochlea. Osteophytes are noted. Ligaments and tendons: The anterior and posterior cruciate ligaments are normal. There are changes of prior sprains of medial collateral ligament and lateral collateral ligament characterized by increased signal intensity proximally. There is moderate patellar tendinopathy. Fluid: There is a small knee joint effusion. There is a small Woods's cyst. There is mild prepatellar and superficial infrapatellar bursitis. IMPRESSION: 1. Moderate chondrosis of medial compartment and mild chondrosis of lateral and patellofemoral compartments. 2. Tear of medial meniscus. 3. Small knee joint effusion. 4. Small Woods's cyst. Reviewed, dictated and finalized at location E.
== END 2025-04-23 12:52 | disposition home or self-care (01) ==
LOC: GOSHIMG 12:51
PROVIDERS: PCP Family Medicine; Visit Provider Family Medicine
DX: M25.462 Effusion, left knee (principal); M71.22 Synovial cyst of popliteal space [Baker], left knee; S83.242D Other tear of medial meniscus, current injury, left knee, subsequent encounter; X58.XXXD Exposure to other specified factors, subsequent encounter
CPT/HCPCS: 73721